=== PATIENT | female | born 1980 | race Caucasian/White ===

== ENCOUNTER 2017-04-25 04:53 | Emergency (ER) | payer BC ==
[~2017-04-25] VITALS: Ht 157.5 cm; Wt 97.1 kg
[~2017-04-25 04:53] MED LIST: HYG/25 PO
[2017-04-25 04:55] VITALS: TEMP 36.5; Ht 157.5 cm; Wt 97.1 kg
[2017-04-25] MEDS ORDERED: DEXAMETHASONE SOD INJ 4 MG/ML VIAL PO STA (05:06)
[2017-04-25] MEDS ORDERED: AMOX875T PO (05:10)
[2017-04-25] MEDS ORDERED: PRED50TA PO (05:10)
[2017-04-25] MEDS ORDERED: LIDO2SOL19 PO (05:11)
[2017-04-25] MEDS ORDERED: AMOXICIL/CLAVU 875MG HOME PACK PO ONE (05:15)
[2017-04-25] MEDS ORDERED: LIDOCAINE HCL 2% VISC SOLN 20 ML UDC MT ONE (05:15)
[2017-04-25] MEDS ORDERED: ZLF/50 PO (05:16)
--- NOTE | 2017-04-25 05:25 | EMERGENCY ROOM VISIT NOTE ---
History First contact with patient: 04:59 Chief Complaint: SORETHROAT Stated Complaint: THROAT SWELLING SHUT,SORE,PUSS POCKETS History of Present Illness The patient is a 36 year old female who presents to the Emergency Room with complaints of sore throat and discomfort for the past few days he went to urgent care and had a negative strep test and was placed on Z-Reggie last night. Patient complains of cold symptoms for the past few days. Patient denies chest pain, dyspnea, neck stiffness, earache, cough, dysphagia. Patient states she can take amoxicillin without difficulties. Patient states she is not allergic to prednisone and can take this. Review of Systems See HPI for pertinent positives & negatives. A total of 10 systems reviewed and were otherwise negative. Past Medical/Surgical History none Family History Heart disease Social History Smoking Status: Never Smoker Alcohol Use: occasionally Drug Use: none Marital Status: in relationship Housing Status: lives alone Occupation Status: employed Current/Historical Medications Scheduled Amoxicillin & Pot Clavulanate (Augmentin 875-125 mg), 1 TAB PO BID Chlorthalidone (Hygroton), 12.5 MG PO DAILY Lidocaine Hcl (Mouth-Throat) (Lidocaine Viscous), 10 ML PO TID Prednisone (Prednisone), 50 MG PO DAILY Sertraline HCl (Sertraline HCl), 50 MG PO DAILY Physical Exam Vital Signs Date Time Temp Pulse Resp B/P (MAP) Pulse Ox O2 Delivery O2 Flow Rate FiO2 04/25/17 04:55 36.5 85 18 144/92 97 Room Air Physical Exam VITALS: Vitals are noted on the nurse's note and reviewed by myself. Vital signs stable. GENERAL: White female speaking in full sentences, in no acute distress, nondiaphoretic, well-developed well-nourished. SKIN: The skin was without rashes, erythema, edema, or bruising. There is no tenting of the skin. Capillary reflex less than 2 seconds. HEAD: Normocephalic atraumatic. EARS: External auditory canals clear, tympanic membranes pearly limon without erythema or effusion bilaterally. EYES: Pupils equal round and reactive to light and accommodation. Conjunctivae without injection, sclerae without icterus. Extraocular movements intact. NOSE: Patent, turbinates without inflammation or discharge. No sinus tenderness. MOUTH: Mucous membranes moist. Tonsils are minimally enlarged. Pharynx with erythema without exudate. Uvula midline erythematous and edematous concerning for uvulitis. Airway patent. Tongue does not deviate. NECK: Supple without nuchal rigidity. Submandibular lymph node enlargement, no meningeal signs. No thyromegaly. Cervical spine is nontender. No JVD. HEART: Regular rate and rhythm without murmurs gallops or rubs. LUNGS: Clear to auscultation bilaterally without wheezes, rales or rhonchi. No dullness to percussion. No retractions or accessory muscle use. ABDOMEN: Positive bowel sounds x 4. Normal tympanic percussion. Soft, nontender, without masses or organomegaly. Tejeda sign negative. No guarding or rebound tenderness. MUSCULOSKELETAL: No muscle atrophy, erythema, or edema noted. NEURO: Patient was alert and oriented to person place and time. Normal sensation to light and sharp touch. No focal neurological deficits. Medical Decision & Procedures Medications Administered Medications (Trade) Dose Ordered Sig/Paul Route Start Time Stop Time Status Last Admin Dose Admin Dexamethasone Sodium Phosphate (Decadron Inj) 10 mg NOW STAT PO 04/25/17 05:06 04/25/17 05:08 DC 04/25/17 05:17 10 MG Amoxicillin/ Clavulanate Potassium (Augmentin 875MG Home Pack) 1 homepack UD ONCE PO 04/25/17 05:15 04/25/17 05:16 DC 04/25/17 05:17 1 HOMEPACK Lidocaine HCl (Viscous Lidocaine 2% Soln) 10 ml NOW ONCE MT 04/25/17 05:15 04/25/17 05:16 DC 04/25/17 05:17 10 ML ED Course Prior records/ancillary studies reviewed. Triage Nursing notes reviewed. Additional history obtained from family The patient's history was concerning for a sore throat. Differential diagnosis: Etiologies such as viral syndrome, tonsillitis, streptococcal pharyngitis, mononucleosis, peritonsillar abscess, retropharyngeal abscess, otitis, pneumonia , influenza, as well as others were entertained. ER treatment provided: Decadron, Augmentin, viscous lidocaine On reassessment the patient felt better. Diagnostics interpreted by me: Deferred This appears to be consistent with uvulitis. Patient was started on Augmentin. She states she can take prednisone. She is given a dose of Decadron. She is advised to stop the Zithromax and to start the current medications are prescribed in the ER. She is advised follow-up family care doctor in a few days reevaluation or here in the ER sooner for difficulty swelling,-fevers, neck stiffness, worsening signs or symptoms or as needed. Patient was neurovascularly and neurologically intact. No signs of meningitis or airway compromise or abscess. By the evaluation outlined above emergent etiologies such as peritonsillar abscess, retropharyngeal abscess, otitis, pneumonia, meningitis, urinary tract infection, sepsis, bacteremia, as well as others were deemed relatively unlikely. The mother was shown the throat and verbalized understanding of diagnosis and treatment plan. The pt informed about the findings as listed above. All questions were answered and pleased with the treatment. Return instructions were outlined and the patient was discharged in stable condition. Outpatient prescription management: Augmentin, prednisone Referral: The patient was referred back to their primary care physician for follow-up in 2 to 3 days for a recheck of the current condition. Medical Decision As above Medication Reconcilliation Current Medication List: was personally reviewed by me Blood Pressure Screening Patient's blood pressure: Elevated blood pressure Blood pressure disposition: Elevated BP felt to be situational Impression Primary Impression: Uvulitis Departure Information Dispostion Home / Self-Care Condition GOOD Prescriptions Lidocaine Hcl (Mouth-Throat) (LIDOCAINE VISCOUS) 2 % Mulu 10 ML PO TID for 6 Days, #100 ML Prov: Mary Ann Buckley .SHALINI 04/25/17 Amoxicillin & Pot Clavulanate (Augmentin 875-125 mg) 1 Tab Tab 1 TAB PO BID for 9 Days, #18 TAB Prov: Mary Ann Buckley PA-C 04/25/17 Prednisone (Prednisone) 50 Mg Tab 50 MG PO DAILY for 4 Days, #4 TAB Prov: Mary Ann Buckley PA-C 04/25/17 Forms HOME CARE DOCUMENTATION FORM, Work Instructions, Return To Work: 2 days IMPORTANT VISIT INFORMATION Patient Instructions My [facility], ED Uvulitis Additional Instructions Stop the Z-Reggie. Prednisone 50mg: Once daily until the prescription is finished. It is best to take this earlier in the day as some patients note occasional difficulty falling asleep when taken in the late evening. Amoxicillin Clavulanate (Augmentin) 875mg: Take one pill twice daily for 10 days for your infection. All antibiotics can cause diarrhea. If this occurs and you feel worse or it does not resolve in 1-2 days follow up with your doctor or return to the Emergency Department as this could be signs of serious underlying problems. Any medication can cause an allergic reaction, stop the pills immediately and return to the ER for rash, hives, breathing difficulties, or swelling. Ibuprofen(Motrin, Advil) may be used for fever or pain. Use 600mg every six hours as needed. Take with food. Avoid using more than 2400mg in a 24 hour period. Do not use 2400mg per day for more than three consecutive days without physician direction. Prolonged inappropriate use can lead to stomach upset or ulcers. (AND/OR) Acetaminophen(Tylenol) may be used for fever or pain. Use 1000mg every six hours as needed. Avoid using more than 4000mg in a 24 hour period. Acetaminophen(Tylenol) may be used for fever or pain. Use 1000mg every six hours as needed. Avoid using more than 3000mg in a 24 hour period. (AND/OR) Ibuprofen(Motrin, Advil) may be used for fever or pain. Use 600mg every six hours as needed. Take with food. Avoid using more than 2400mg in a 24 hour period. Do not use 2400mg per day for more than three consecutive days without physician direction. Prolonged inappropriate use can lead to stomach upset or ulcers. Viscous lidocaine: 10 mL's every 6 hours as needed for sore throat. Afrin nasal spray: 2-3 sprays to each nostril twice daily as needed for congestion. Do not use for more than 3-4 days because it can lead to worsening rebound congestion. Pseudoephedrine(Sudaphed): 30-60mg every 6 hours as needed for nasal congestion. Do not take this with other stimulant products or supplements. Rest and drink plenty of fluids. Controlling your fever with Tylenol and Ibuprofen as above will make you feel better. Wash your hands after nose blowing, sneezing, or coughing. Most germs are spread through contact, therefore improper hygiene may result in your close contacts and loved ones becoming ill just like you. Continue current medications. Return to the ER for severe headache, neck stiffness, chest pain, difficulty breathing, fevers, vomiting, worsening of your condition, or as needed. Follow up with your primary physician this week for a recheck of your current condition. Work Instructions Return To Work: 2 days
[2017-04-25 05:26] VITALS: BP 144/92; PULSE 85; O2SAT 98
== END 2017-04-25 05:30 | disposition home or self-care (01) ==
LOC: C.EDB 04:53
DX: K12.2 Cellulitis and abscess of mouth (principal); Z79.899 Other long term (current) drug therapy; Z82.49 Family history of ischemic heart disease and other diseases of the circulatory system